=== PATIENT | male | born 1990 ===

== ENCOUNTER 2019-11-23 12:41 | Emergency (ER) | payer MEDICAID, SELFPAY ==
[2019-11-23 12:44] VITALS: BP 113/96; PULSE 86; RESP 20; TEMP 36.4; O2SAT 96
--- NOTE | 2019-11-23 13:05 | DI.RAD_ITS ---
EXAM: XR FOOT RT COMPLETE CLINICAL HISTORY: stepped on nail TECHNIQUE: COMPARISON: No exams were available for comparison FINDINGS: Three views were obtained. No fracture or foreign body identified. IMPRESSION: RADIATION DOSE DELIVERED: Total DLP
--- NOTE | 2019-11-23 13:09 | W.ED.GENAD ---
Discharge Plan Disposition Patient Disposition: HOME Condition: Stable Discharge Details Clinical Impression: Puncture wound of plantar aspect of foot Primary Care Provider: None,None ED Provider: Booker Kent Home Meds and New Rx's Prescriptions: New ciprofloxacin HCl [Cipro] 500 mg tablet 500 mg PO BID 10 Days Qty: 20 RF: 0 Discharge Instructions Instructions: Puncture Wound (ED) Additional Instructions: Tetanus updated today. X-ray is unremarkable. Cipro as directed. Keep the area clean and dry, you may change antibiotic dressing daily. Rest, elevate, warm soaks or compresses every 2 hours for 20 minutes. Please watch for new or worsening symptoms and return to the ER for any concerns. Medical Decision Making Presents having stepped on a nail through his shoe yesterday while at work. Clinically it appears as though he has a right foot plantar puncture wound. Tetanus was last updated in February 2014. Will update tetanus, thoroughly clean and irrigate, and obtain x-ray to rule out foreign body. X-ray of the right foot read by me is unremarkable, confirmed by radiology. Will place on Cipro for potential infection. Patient has no additional questions or concerns and is comfortable with this plan. Medical Records Medical records reviewed: Yes I reviewed the patient's medical records. HPI General Mode of arrival: EMS. Date/Time Provider Initiated Documentation: 11/23/19 12:48. Limitations to Documentation: no limitations. Information obtained by: patient. HPI Narrative: 29-year-old gentleman who denies significant past medical history presents to the ER for evaluation of right foot injury. Yesterday while at work he stepped on a nail that went through his rubber soled shoes. Patient is unsure of his last tetanus status. He reports there is mild pain at rest worse with weightbearing. The nail did puncture his skin but he reports that he was able to remove the entire nail. He denies any other injury, numbness, tingling, weakness, fever. Related Data Home Medications Medication Instructions Recorded Confirmed ciprofloxacin HCl [Cipro] 500 mg PO BID 10 Days #20 tab 11/23/19 Previous Rx's Medication Instructions Recorded ciprofloxacin HCl [Cipro] 500 mg PO BID 10 Days #20 tab 11/23/19 Allergies Allergy/AdvReac Type Severity Reaction Status Date / Time hay fever Allergy Uncoded 06/10/17 16:41 General Stated Complaint: Laceration JOSÉ MANUEL: 4 Review of Systems Constitutional Constitutional: Denies fever(s) and Denies weakness Musculoskeletal Musculoskeletal: Denies numbness and Denies tingling Integumentary/Breasts Skin/Breast: Denies erythema and Denies rash Neurologic Neurologic: Denies numbness, Denies tingling and Denies weakness [facility] Social History Smoking/Tobacco Use Status: Current every day Tobacco Type: cigarettes Alcohol Intake: never Drug use: Occasionally Substance use type: marijuana Do you feel safe in your relationship?: Yes Exam Const General: cooperative, healthy appearing, comfortable and no acute distress Orientation: alert and awake HENAK Head: normal to inspection, normocephalic and atraumatic Mouth: moist mucous membranes Eyes Conjunctivae: conjunctivae normal Neck Neck: normal visual inspection, trachea midline and supple Resp Effort & Inspection: normal respiratory effort and able to speak in complete sentences Cardio Rate: regular rate Rhythm: regular rhythm Skin General skin exam: no rashes or lesions noted Neuro General: patient alert, patient awake, moves all extremities and no focal motor deficits Sensory Exam: no sensory deficits noted Extrem Ankle/foot/toe images: 1. Puncture wound with mild discomfort. There is no drainage, fluctuance, induration, erythema. Full range of motion of his toes and foot. Normal capillary refill. Neuro, vascular, tendon intact Psych Appearance: grossly normal Mental Status: mental status grossly normal Course Vital Signs Vital signs: Vital Signs Temperature 36.4 C L 11/23/19 12:44 Pulse 86 11/23/19 12:44 Respiratory Rate 20 11/23/19 12:44 Blood Pressure 113/96 H 11/23/19 12:44 Pulse Oximetry 96 11/23/19 12:44 Temperature 36.4 C L 11/23/19 12:44 Temperature Source Skin 11/23/19 12:44 Pulse 86 11/23/19 12:44 Respiratory Rate 20 11/23/19 12:44 Respiratory Effort Non-Labored 11/23/19 12:46 Blood Pressure 113/96 H 11/23/19 12:44 Blood Pressure Position Sitting 11/23/19 12:44 Pulse Oximetry 96 11/23/19 12:44 Oxygen Delivery Method Room Air 11/23/19 12:44 Oxygen Flow Rate 0 11/23/19 12:44 Pain Level 7 11/23/19 12:44
== END 2019-11-23 13:16 | disposition home or self-care (01) ==
LOC: ER 13:12
PROVIDERS: Emergency Provider Physician Assistant
DX: S91.331A Puncture wound without foreign body, right foot, initial encounter (principal); W45.0XXA Nail entering through skin, initial encounter
CPT/HCPCS: 90471; 99284; 73630; 99283

== ENCOUNTER 2020-03-31 15:46 | Emergency (ER) | payer MEDICAID, SELFPAY ==
[2020-03-31 15:54] VITALS: BP 136/77; PULSE 85; RESP 16; TEMP 36.3; O2SAT 95
--- NOTE | 2020-03-31 16:11 | ED.GENADUL_ITS ---
Discharge Plan Disposition Patient Disposition: HOME Condition: Stable Discharge Details Clinical Impression: Seizure, Transaminitis Primary Care Provider: Unknown,Unknown ED Provider: Kelly Auguste Home Meds and New Rx's Prescriptions: New levetiracetam [Keppra] 500 mg tablet 500 mg PO BID Qty: 14 RF: 0 Discharge Instructions Instructions: Recurrent Seizures in Adults (ED) Additional Instructions: You were given a dose of Keppra here today. Your next dose will be due tomorrow morning. I would like for you to follow-up with a primary care within the next week. Please call your primary care to schedule appointment soon as possible for reevaluation. You are noted to have elevated liver enzymes. Please discuss this further with your primary care. If you develop fevers, chills, recurrent seizures, headache or other new/worsening symptoms please seek care urgently once again. Medical Decision Making Patient is a pleasant 29-year-old male presenting today with chief complaint of seizure. Patient has a known history of epilepsy. He reports he was lost to follow-up and has not been prescribed a refill of his Keppra for several weeks. States his last seizure was 3 months ago. He reports that today, he was feeling well, going to get food when he suffered a seizure. States that his sigfnicant other found his seizing. He recovered. It has been 3-4 hours since his seizure. He was concerned that he needs a refill of his Keppra prompting him to seek care. He states that he is tired and achy but that this is baseline after his seizures historically. He denies VORA, visual changes, weakness, fevers/chills, N/V, pain or indication of trauma. Denies ETOH or drug use. On exam, patient appears tired but otherwise nontoxic. He has no evidence of trauma. Neurologically intact. As patient has known hx of seizure disorder, and is reporting to be at his baseline, I do not feel that repeat imaging of his head is warranted. Plan for labs and will load with Keppra. He states that he is typically on 500mg Keppra BID. States he has upcoming appointment with his PCP but that he does not know who this is- reports it is typically his significant other that helps him with his appointments and medications. Labs reviewed. BUN elevated as were AST and ALT. Patient has not had elevated liver enzymes hjistroically although he last had these checked in 2011. Discussed findings with the patient. He does report ETOH use. He is quite anxious to leave at this point. He reports he needs to go home secondary to childcare limitations. Patient is requesting Keppra. He did take 1 g here for loading dose. Unclear what his previous dosing was. I did contact the patient's pharmacy and they advised that he has not had a filled at their facility. Patient is a last seizure was approximately 3 months ago. 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 Patient prescribed his previous self-reported dosing of Keppra at 500mg BID. I have asked that he f/u with PCP this week. Again, he states he has a PCP appoinment but is unclear who this is. I have asked care management to ensure that he has appropriate f/u. Strict return precautions given. All of his questions and concerns were addressed, he isin agreement with this plan. HPI General Mode of arrival: ambulatory . Date/Time Provider Initiated Documentation: 03/31/20 16:11 . Limitations to Documentation: no limitations . Information obtained by: patient and RN notes reviewed . History of Present Illness 29 year old M presents to the emergency department with the chief complaint of seizure, described as similar to prior episodes, Quality is described as aching (reports feeling generally achy after seizure), Patient s tarted experiencing this hour(s) and it has been now resolved. No relieving factors improve symptom(s), No exacerbating factors reported . Patient notes denies chest pain, cough, fever/chills, headaches, loss of appetite, nausea/vomiting, rash, shortness of breath and weakness. Patient did receive the following treatments prior to arrival, none Related Data Home Medications Medication Instructions Recorded Confirmed levetiracetam [Keppra] 500 mg PO BID #14 tab 03/31/20 Previous Rx's Medication Instructions Recorded levetiracetam [Keppra] 500 mg PO BID #14 tab 03/31/20 Allergies Allergy/AdvReac Type Severity Reaction Status Date / Time hay fever Allergy Uncoded 06/10/17 16:41 General Stated Complaint: Seizure JOSÉ MANUEL: 3 Review of Systems Constitutional Constitutional: Reports as per HPI, Denies chills, Reports fatigue, Denies fever(s), Denies frequent falls, Denies headache(s), Denies snoring and Denies weakness Eyes Eyes: Reports as per HPI, Denies blurry vision and Denies change in vision ENT Ears, Nose, Mouth, and Throat: Denies vertigo, Denies headache(s) and Denies neck pain Cardiovascular Cardiovascular: Reports as per HPI, Denies chest pain, Denies lightheadedness, Denies radiating jaw, neck or arm pain, Denies dyspnea and Denies dyspnea on exertion Respiratory Respiratory: Reports as per HPI, Denies chest congestion, Denies cough, Denies dyspnea, Denies dyspnea on exertion, Denies snoring, Denies stridor and Denies wheezing Gastrointestinal Gastrointestinal: Reports as per HPI, Denies abdominal pain, Denies change in bowel habits, Denies nausea and Denies vomiting Genitourinary Genitourinary: Reports system reviewed and no additional complaints, except as documented (denies change in urinary habits, no incontinence) Musculoskeletal Musculoskeletal: Reports as per HPI, Denies back pain, Reports myalgias (states this is baseline after seizure), Denies muscle cramps, Denies neck pain and Denies numbness Integumentary/Breasts Skin/Breast: Reports as per HPI and Denies rash Neurologic Neurologic: Reports as per HPI, Denies abnormal movements, Denies abnormal speech, Denies behavioral changes, Denies confusion, Denies vertigo, Denies frequent falls, Denies headache(s), Denies localized weakness, Denies numbness, Reports convulsions, Denies sensory deficit and Denies weakness Psychiatric Psychiatric: Denies behavioral changes and Denies confusion Endocrine Endocrine: Reports fatigue Allergic/Immunologic Allergic/Immunologic: Denies wheezing [facility] Social History Smoking/Tobacco Use Status: Current every day Tobacco Type: cigarettes Smoking risk assessment performed?: Yes Alcohol Intake: current Alcohol Intake frequency: a few times a month Alcohol type: beer Drug use: Occasionally Substance use type: marijuana Details: Had several beers prior to seizure Do you feel safe at home: Yes Do you feel safe in your relationship?: Yes Exam Const General: cooperative, healthy appearing, comfortable (appears tired), no acute distress, well developed and well groomed Nutritional Appearance: average body habitus and well nourished Orientation: alert, awake and oriented x3 HENMT Head: normal to inspection, no palpable skull fracture, normocephalic and atraumatic Ears: hearing grossly normal bilaterally, external ears normal and TM's normal bilaterally General nose exam: external nose normal Mouth: oral mucosae normal and moist mucous membranes Throat: posterior oropharynx normal Eyes General: appearance normal, both eyes and all related structures Alignment and Position: alignment normal Periorbital: periorbital findings normal Eyelids: eyelids normal Sclera: sclerae normal Cornea: corneas normal Pupils: PERRL EOM: EOM intact bilaterally Neck Neck: normal visual inspection, full ROM, no lymphadenopathy and no meningeal signs Resp Effort & Inspection: normal respiratory effort, able to speak in complete sentences and no respiratory distress Auscultation: clear to auscultation bilaterally, no rales, no rhonchi and no wheezes Cardio Rate: regular rate Rhythm: regular rhythm Heart Sounds: S1 normal and S2 normal GI Inspection: normal to inspection and non-distended Palpation: soft, no hepatosplenomegaly, not firm, no guarding, not rigid and nontender Percussion: normal to percussion Auscultation: normal bowel sounds Back/Spine/Pelvis Cervical Spine: normal cervical lordosis and cervical ROM normal Skin General skin exam: no rashes or lesions noted Neuro General: patient alert, patient awake and patient oriented x3 Cranial Nerves: CN's II-XI intact bilaterally Cognition: normal cognition Speech: speech normal Gait: normal gait Motor: muscle tone normal throughout, strength 5/5 throughout, no pronator drift, no movement abnormalities noted and no fasciculations Sensory Exam: no sensory deficits noted Coordination: [id number] test normal and [id number] test normal Extrem General: normal to inspection, capillary refill normal, no pedal edema and no calf tenderness Psych Appearance: grossly normal and well kempt Mental Status: mental status grossly normal Speech and Movement: speech and movement normal Course Vital Signs Vital signs: Vital Signs Temperature 36.3 C L 03/31/20 15:54 Pulse 85 03/31/20 15:54 Respiratory Rate 16 03/31/20 15:54 Blood Pressure 136/77 03/31/20 15:54 Pulse Oximetry 95 03/31/20 15:54 Temperature 36.3 C L 03/31/20 15:54 Temperature Source Tympanic 03/31/20 15:54 Pulse 85 03/31/20 15:54 Respiratory Rate 16 03/31/20 15:54 Blood Pressure 136/77 03/31/20 15:54 Blood Pressure Position Supine 03/31/20 15:54 Pulse Oximetry 95 03/31/20 15:54 Oxygen Delivery Method Room Air 03/31/20 15:54 Oxygen Flow Rate 0 03/31/20 15:54 Pain Level 0 03/31/20 15:54 Comment 03/31/20 15:54
[2020-03-31 16:31] LABS: HGB 14.4 g/dL (13.5-17.5); MCH 28.6 pg (27.0-33.0); MCHC 35.1 % (32.0-36.0); MCV 81.5 fL (80-95); Platelet Count 253 10^3/uL (130-400); RBC 5.03 10^6/uL (4.36-5.78); RDW 12.8 % (11.8-14.1); WBC 8.03 10^3/uL (4.4-10.8)
[2020-03-31 16:54] LABS: ALT 127 U/L (16-63); AST 44 U/L (15-37); Albumin 4.3 g/dL (3.4-5.0); Alkaline Phosphatase 77 U/L (46-116); Anion Gap 10.3 mmol/L (3-11); BUN 25 mg/dL (7-18); Bilirubin, Total 0.3 mg/dL (0.2-1.0); CO2 27.7 mmol/L (21.0-32.0); CREATININE 1.2 mg/dL (0.70-1.30); Calcium 9.1 mg/dL (8.5-10.1); Chloride 100 mmol/L (98-107); Glucose 107 mg/dL (74-106); Sodium 138 mmol/L (136-145); TSH 0.67 uIU/mL (0.36-3.74); Total Protein 8.1 g/dL (6.4-8.2)
[2020-03-31] MEDS: Ibuprofen 600 MG TAB PO (16:56)
[2020-03-31] MEDS: Acetaminophen 500 MG TAB 1000 MG PO (16:57)
[2020-03-31] MEDS: levETIRAcetam 500 MG TAB 1000 MG PO (16:58)
--- NOTE | 2020-03-31 17:38 | NUR.NOTE ---
PATIENT STATES HE IS SEEN BY [facility] BUT CAN'T FIND ANY EVIDENCE OF THIS, PATIENT PUT ON CARE MANAGEMENT LIST TO EITHER F/U WITH [facility] OR TO ESTABLISH PCP TO F/U IN A WEEK FOR SEIZURE. Nursing Note:
[2020-03-31 18:05] LABS: *AMPHETAMINES SCREEN URINE Negative (Negative); *BARBITURATES SCREEN URINE Negative (Negative); *BENZODIAZEPINES SCREEN URINE Negative (Negative); Cannabinoids THC POSITIVE (Negative); Cocaine Screen,Urine POSITIVE (Negative); METHADONE URINE SCREEN Negative (Negative); OPIATES URINE SCREEN POSITIVE (Negative)
[2020-03-31 18:09] LABS: Tricyclic Antidepressants Negative (Negative)
[2020-03-31 18:26] LABS: Bilirubin Negative (Negative); Blood Negative (Negative); Clarity Clear (Clear); Glucose Negative (Negative); Ketones Negative (Negative); Leukocyte Esterase Negative (Negative); Nitrite Negative (Negative); Specific Gravity >= 1.030 (1.005-1.025); Urobilinogen 0.2 EU/dL (Up TO 0.2); pH 6.5 (5-8)
[2020-03-31 18:33] LABS: Bacteria Negative HPF (Negative); C & S Indicated? No; Casts Negative LPF (Negative); Crystals Negative HPF (Negative); Epithelial Cells Rare HPF (Negative); Mucus Negative (Negative); RBC 0-2 HPF (0-2); WBC 0-2 HPF (0-5)
== END 2020-03-31 17:29 | disposition home or self-care (01) ==
LOC: ER 17:33
PROVIDERS: Emergency Provider Physician Assistant
DX: G40.909 Epilepsy, unspecified, not intractable, without status epilepticus (principal); R74.01 Elevation of levels of liver transaminase levels
CPT/HCPCS: 36416; 80053; 80307; 82962; 85027; 99283; 81003; 81015; 84443

== ENCOUNTER 2021-07-26 16:36 | Outpatient (REF) | payer MEDICAID, SELFPAY | END 2021-07-26 16:37 | disposition home or self-care (01) | LOC: LBN 16:36 | PROVIDERS: Visit Provider Physician Assistant Medical | DX: L02.416 Cutaneous abscess of left lower limb (principal); L08.89 Other specified local infections of the skin and subcutaneous tissue | CPT/HCPCS: 87077; 87070; 87186; 87205 ==

== ENCOUNTER 2021-08-03 21:31 | Emergency (ER) | payer MEDICAID, SELFPAY ==
[2021-08-03 21:59] VITALS: BP 121/86; PULSE 116; RESP 20; TEMP 37; O2SAT 92
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
[2021-08-03] MEDS: Sulfameth/Trimeth DS TAB 1 TAB PO (22:18)
[2021-08-03] MEDS: Sulfameth/Trimeth DS, 2 TABS/BTL 1 TAB PO (22:20)
[2021-08-03] MEDS: Mupirocin 2% 15 GM TUBE TP (22:42)
== END 2021-08-03 22:42 | disposition home or self-care (01) ==
PROVIDERS: Emergency Provider Registered Nurse Emergency
DX: L08.89 Other specified local infections of the skin and subcutaneous tissue (principal)
CPT/HCPCS: 99283

== ENCOUNTER 2021-12-17 15:08 | Outpatient (REF) | payer MEDICAID, SELFPAY | END 2021-12-17 15:09 | disposition home or self-care (01) | LOC: LBN 15:08 | PROVIDERS: PCP Nurse Practitioner Family; Visit Provider Nurse Practitioner Family | DX: L08.89 Other specified local infections of the skin and subcutaneous tissue (principal); K62.89 Other specified diseases of anus and rectum | CPT/HCPCS: 87070; 87205 ==

== ENCOUNTER 2023-05-17 12:03 | Outpatient (REF) | payer MEDICAID, SELFPAY ==
[2023-05-19 13:30] LABS: Chlamydia Result Negative (Negative); GC Result Negative (Negative)
== END 2023-05-17 12:04 | disposition home or self-care (01) ==
LOC: LBN 12:03
PROVIDERS: Visit Provider Physician Assistant Medical
DX: Z20.89 Contact with and (suspected) exposure to other communicable diseases
CPT/HCPCS: 87491; 87591